=== PATIENT | female | born 1985 | race Hispanic/Latino ===

== ENCOUNTER 2018-10-17 23:19 | Emergency (ER) | payer BC | END 2018-10-18 01:15 | disposition home or self-care (01) | LOC: H.EROB2 23:19 | DX: O26.93 Pregnancy related conditions, unspecified, third trimester (principal); R10.2 Pelvic and perineal pain; Z3A.39 39 weeks gestation of pregnancy ==

== ENCOUNTER 2018-10-18 11:52 | Inpatient (IN) | payer BC, OTHER ==
--- NOTE | 2018-10-18 11:55 | OBHP ---
Datetime: 10/18/2018 00:05 IP Adm Impression: Term, intrauterine ; No Active Labor; Intact Membranes IP Admit Plan: Observation/Evaluation; Discharge home Admit Comment, IP Provider: 32 y/o , 38.2 weeks based on LMP with EDC of 10/29/18 presents to [facility] with uterine CTx. CTx staretd 9 am on 10/17/18 and progressively increased in severity. CTx are Q5-10 mins which are Q2-3 mins now. Endorses good FM. Denies VB, LOF. Denies any other urinary symptoms, f ever, chills, n/V. All system ROS negative except mentioned above. Care: Dr. Mady Cardoso, records reviewed. PMHx: Denies PSHx: Keloid removal Allergies: NKDA Meds: PNVs F/H: Mother: seizure disorder, Developmental anomaly GF: HTN, DM, COPD, MA Social Hx: Denies smoking, drugs , alcohol PE Gen: NAD Chest: RRR, S1S2 present Lungs: CTAB ABdomen: Gravid, Soft, NT Ext: No pedal edema SVE: Fingertip(Done byu Dr. Quan) A/P: 32 y/o , 38.2 weeks based on LMP with EDC of 10/29/18 presents to [facility] with uterine CTx. - Irregular Low amplitude CTx - EFM: Reactive as above - Cervix: Fingertip - US: Cephalic presentation - Dr. Cardoso called back and spoke with Marino VARGAS. Patient given option to receive IV pain medicati on and get rechecked in office or Discharge home with labor precautions and Follow up with Dr. Cardoso in office. Patient opted for going home and will follow up with Dr. Cardoso at 10:00am . - Labor precautions provided. Case discussed with Dr. Kadeem Cardoso OB Hospitalist note. Pt sen and examined with PGY1 ... Agree with PGY1 note MAHNDO Pelvic Type - PN: Adequate Extremities - PN: Normal Abdomen - PN: Normal Back - PN: Normal Breast - PN: Not Done Lungs - PN: Normal Heart - PN: Normal Thyroid - PN: Not Done Neurologic - PN: Not Done HEENT - PN: Normal General - PN: Normal Presentation-Admit: Vertex FHR - Baseline A Provider: 130 Membranes, Provider: Intact Pool Provider: Negative EGA AdmitDate IP: 38.3 Vital Signs Provider: Reviewed; Within Normal Limits IP Chief Complaint: Uterine contractions; Maternal discomfort NICHD Variability Prov Fetus A: Moderate 6-25bpm NICHD Accel Fetus A IP Provider: [id number] FHR Category Provider Fetus A: Category I NICHD Decel Fetus A IP Provider: None Dilatation, Provider: Fingertip Genitourinary Exam: Normal DTRs - PN: Not Done
--- NOTE | 2018-10-18 11:55 | OBDCSUM ---
Datetime: 10/18/2018 01:00 Discharged to, Provider: Home Follow up at, Provider: Dr. Cardoso Disch Instr Diet: Regular Discharge Diagnosis, Provider: Jesus Labor - Undelivered Discharge Time: 10/18/2018 01:00 Follow up in weeks, Provider: Tomorrow 10/18/2018 10:00 AM Disch Referrals: None
[2018-10-18] MEDS ORDERED: Oxytocin 30 UNIT in NS 500 ml 30 UNITS/500 ML BAG IV ONE ×3 (12:15→21:52)
[2018-10-18] MEDS: Lactated Ringer's 1,000 ML IV ONE ×2 (12:15→13:15)
[2018-10-18 12:19] VITALS: BMI 33.2
[2018-10-18 13:06] LABS: BASO % 0.2 % (0.0-2.0); HEMOGLOBIN 12.6 g/dL (12.0-16.0); LYMPH # 1.1 K/uL (1.0-4.3); LYMPH % 5.3 % (20.0-40.0); MEAN CELL VOLUME 77.8 fl (81.0-99.0); MEAN CORPUSCULAR HEMOGLOBIN 26.1 pg (27.0-31.0); MEAN CORPUSCULAR HGB CONC 33.5 g/dL (33.0-37.0); MEAN PLATELET VOLUME 9.1 fl (7.2-11.7); MONO # 0.6 K/uL (0.0-0.8); MONO % 2.7 % (0.0-10.0); NEUT # 18.8 K/uL (1.8-7.0); NEUT % 91.8 % (50.0-75.0); NRBC % 0.1 % (0.0-0.0); PLATELET COUNT 321 K/uL (130-400); RBC 4.84 Mil/uL (3.80-5.20); RED CELL DISTRIBUTION WIDTH 14.3 % (11.5-14.5); WHITE BLOOD COUNT 20.5 K/uL (4.8-10.8)
[2018-10-18] MEDS ORDERED: Bupivacaine HCl 0.5% PF (30 ml) Inj ONE ×2 (13:39→21:47)
[2018-10-18] MEDS ORDERED: Fentanyl/Bupivacaine HCl 250 ML EPI ONE (13:43)
[2018-10-18] MEDS: Lactated Ringer's 1,000 ML IV SCH ×3 (14:05→18:55)
[2018-10-18 14:48] LABS: ANISOCYTOSIS SLIGHT; LYMPHOCYTE 10 % (20-50); MICROCYTOSIS SLIGHT; MONOCYTE 4 % (0-10); NEUTROPHIL 86 % (42-75); OVALOCYTES SLIGHT; PLATELET ESTIMATE NORMAL (NORMAL); TOTAL CELLS COUNTED 100
[2018-10-18 14:49] LABS: LARGE PLATELETS PRESENT
[2018-10-18] MEDS ORDERED: Sodium Chloride 0.9% 10 ML IV ONE (15:26)
[2018-10-18] MEDS ORDERED: Sodium Chloride 0.9% 1,000 ML IV SCH (19:00)
[2018-10-18] MEDS ORDERED: ceFAZolin 1 GM in Sodium Chloride 0.9% 100 ML IVPB STA ×2 (21:39→21:40)
[2018-10-18] MEDS ORDERED: Azithromycin 500 MG in Sodium Chloride 0.9% 250 ML IVPB STA (21:45)
[2018-10-18] MEDS ORDERED: Phenylephrine 10 mg/ml Inj ONE (21:45)
[2018-10-18] MEDS ORDERED: ePHEDrine 50 mg/ml Inj ONE (21:46)
[2018-10-18] MEDS ORDERED: Morphine 5 mg/10 ml preservative-free Inj(Duramorph) ONE (21:47)
[2018-10-18] MEDS ORDERED: Morphine 1 mg/ml preservative-free Inj(Duramorph) ONE (22:27)
[2018-10-18] MEDS ORDERED: Triamcinolone Acetonide 40 mg/mL Inj IM ONE (22:36)
[2018-10-18] MEDS ORDERED: Oxycodone/Acetaminophen 5/325 mg Tab PO PRN ×2 (23:29)
[2018-10-19] MEDS ORDERED: Oxycodone/Acetaminophen 5/325 mg Tab PO PRN ×4 (01:29→03:01)
[2018-10-19] MEDS ORDERED: Sodium Chloride 0.9% 1,000 ML IV SCH (01:30)
[2018-10-19] MEDS ORDERED: Lactated Ringer's 1,000 ML IV SCH ×3 (02:01→03:01)
[2018-10-19] MEDS: Simethicone 80 mg Chewtab PO SCH ×4 (04:00→21:42)
[2018-10-19] MEDS ORDERED: Simethicone 80 mg Chewtab PO SCH ×2 (04:00)
[2018-10-19 06:50] LABS: HEMOGLOBIN 10.5 g/dL (12.0-16.0); MEAN CELL VOLUME 79.1 fl (81.0-99.0); MEAN CORPUSCULAR HEMOGLOBIN 25.9 pg (27.0-31.0); MEAN CORPUSCULAR HGB CONC 32.8 g/dL (33.0-37.0); RBC 4.06 Mil/uL (3.80-5.20); RED CELL DISTRIBUTION WIDTH 14.2 % (11.5-14.5); WHITE BLOOD COUNT 14.3 K/uL (4.8-10.8)
--- NOTE | 2018-10-19 08:16 | OP ---
PROCEDURE DATE: 10/18/18 PREOPERATIVE DIAGNOSES: Intrauterine at 38+ weeks, spontaneous rupture of membranes, nonreassuring heart rate category II tracing, remote from delivery. POSTOPERATIVE DIAGNOSES: Intrauterine at 38+ weeks, spontaneous rupture of membranes, nonreassuring heart rate category II tracing, remote from delivery. PROCEDURE PERFORMED: Primary low-flap transverse section by Pfannenstiel skin incision. SURGEON: Amilcar Patel MD DRY BOSS: Dr. Maryan Lynn. She was helpful in creating exposure, obtaining hemostasis, delivery of the and closure of the patient. The procedure would not have been possible without her assistance. ESTIMATED BLOOD LOSS: 800 mL. URINE OUTPUT: Approximately 150 mL of clear urine. The patient received 200 mL of D5 LR intraoperatively. OPERATIVE FINDINGS: Infant boy, vertex presentation, weighing 2230 g. Apgars 9 and 9. Normal uterus, tubes, and ovaries were identified. DESCRIPTION OF PROCEDURE: After informed consent was obtained, the patient was taken to the operating room. She was given spinal anesthesia. She was then prepped and draped in a normal sterile fashion with leftward tilt. A Pfannenstiel skin incision was then made with a scalpel and carried down to the underlying layer of fascia. The fascia was nicked in the midline. The fascial incision was then extended laterally with curved Lovett scissors. Superior aspect of the fascial incision was then grasped with Allison clamps, elevated up and the rectus muscles were dissected off using both sharp and blunt dissection. Attention was then turned to the inferior aspect of the fascial incision, which in a similar fashion was grasped with Allison clamps, elevated up and the rectus muscles were dissected off using both sharp and blunt dissection. The rectus muscles were then in the midline. The peritoneum was identified and entered sharply with Metzenbaum scissors. The peritoneal incision was then extended superiorly and inferiorly with good visualization of the bladder. A bladder blade was then adjusted and the vesicouterine peritoneum was identified and entered sharply with Metzenbaum scissors. The incision was then extended laterally. The bladder flap was created digitally. The bladder blade was then readjusted and a low transverse incision was made with a scalpel. The incision was then extended laterally. The infant's head was then delivered atraumatically. The nose and mouth were suctioned with DeLee suction trap. The cord was clamped and cut, and the infant was handed off to awaiting pediatricians. The placenta was then removed manually. The uterus was exteriorized and cleared of all clots and debris. The uterine incision was then repaired with 0 Vicryl in a running-locked fashion, the second layer of the same suture was used to obtain excellent hemostasis. The abdomen was then copiously irrigated. The irrigant was removed with the suction device. Hemostasis was noticed. The uterus was returned. The abdomen and the gutters were cleared of all clots and debris. The peritoneum was then closed with 2-0 Vicryl in a running fashion. The muscles were reapproximated with 0 Vicryl in an interrupted fashion. The fascia was closed with 0 Vicryl in a running fashion. The skin was closed with 3-0 on a Alexander needle. All sponge, lap, needle, and instrument counts were correct x2. The patient was taken to the recovery room in awake and stable condition. Amilcar Patel MD
[2018-10-19] MEDS: Multivitamin With Minerals Tab PO SCH (08:32)
[2018-10-19] MEDS ORDERED: Multivitamin With Minerals Tab PO SCH ×2 (09:00)
--- NOTE | 2018-10-19 09:08 | OBPPN ---
Datetime: 10/19/2018 09:07 PP Pain Prov: Within normal limits PP Nausea Prov: Denies PP Flatus Prov: Yes PP Breasts Prov: Normal PP Heart Prov: Normal PP Lungs Prov: Normal PP Abdomen/Uterus Prov: Normal PP Lochia Prov: Normal PP Vulva/Perineum Prov: Normal PP CVA Tenderness Prov: Normal PP Extremities Prov: Normal PP Impression Prov: Normal progression PP Plan Prov: Continue present management Vital Signs Provider PP: Reviewed
[2018-10-19] MEDS: Oxycodone/Acetaminophen 5/325 mg Tab PO PRN (21:40)
[2018-10-20] MEDS: Simethicone 80 mg Chewtab PO SCH ×4 (04:30→21:54)
[2018-10-20] MEDS: Multivitamin With Minerals Tab PO SCH (09:00)
[2018-10-20] MEDS: Oxycodone/Acetaminophen 5/325 mg Tab PO PRN (20:13)
--- NOTE | 2018-10-20 20:16 | OBPPN ---
Datetime: 10/20/2018 20:14 PP Pain Prov: Within normal limits PP Nausea Prov: Denies PP Flatus Prov: Yes PP BM Prov: Yes PP Breasts Prov: Normal PP Heart Prov: Normal PP Lungs Prov: Normal PP Abdomen/Uterus Prov: Normal PP Lochia Prov: Normal PP Vulva/Perineum Prov: Normal PP CVA Tenderness Prov: Normal PP Extremities Prov: Normal PP C/S Incision Prov: Normal PP Progress Prov: Normal PP Impression Prov: Normal progression PP Plan Prov: Continue present management PP Progress Note Prov: pt seen and examien carolyn pjorts pain over incicsion site somethwat contolled with medcaion. pt is ambaitnb, passign flatus, urinating. pt is breast feeding. denies any fever, ch ills, nasue, voiting cp, sob, dizyznees, lightheadd, VSS PE see above IINCIO C/D/I healing well no uteirne tendnere moderatel lohcai, non foul smelling a/p s/p PLTCS POD #2 doing well pain managment regular diet antics dxc in am rto 1 week precaiotn given Vital Signs Provider PP: Reviewed; Within Normal Limits
[2018-10-21] MEDS: Simethicone 80 mg Chewtab PO SCH ×2 (04:36→09:24)
[2018-10-21] MEDS: Multivitamin With Minerals Tab PO SCH (08:45)
[2018-10-21] MEDS: Oxycodone/Acetaminophen 5/325 mg Tab PO PRN (08:45)
--- NOTE | 2018-10-21 13:09 | OBDCSUM ---
Datetime: 10/21/2018 12:57 Discharged to, Provider: Home Follow up at, Provider: DR Cardoso Disch Instr Activity: May Shower Disch Instr Diet: Regular Discharge Instructions, Provider: Routine instructions given Discharge Diagnosis, Provider: Term Delivered Discharge Time: 10/21/2018 14:00 Follow up in weeks, Provider: 1 week Disch Activity Restrictions: No sexual activity; Nothing in vagina - [place], tampons, douche
--- NOTE | 2018-10-21 13:09 | OBPPN ---
Datetime: 10/21/2018 13:06 PP Pain Prov: Within normal limits PP Nausea Prov: Denies PP Flatus Prov: Yes PP BM Prov: Yes PP Abdomen/Uterus Prov: Normal PP Lochia Prov: Normal PP Extremities Prov: Normal PP C/S Incision Prov: Normal PP Progress Prov: Normal PP Comments Phys Exam Prov: Incision w/ streri strips PP Impression Prov: Normal progression PP Plan Prov: Discharge PP Progress Note Prov: POD 3 s/p primary cesaren section, doing well, breast and bottle feeding Rx's motrin and percocet given to pt Discharge home today Vital Signs Provider PP: Reviewed
[2018-10-21 20:18] VITALS: BP 120/79; PULSE 103; RESP 18; TEMP 98; O2SAT 97
== END 2018-10-21 14:00 | disposition home or self-care (01) | DRG 788 ==
LOC: H.EROB2 11:52 → H.L&D 12:15 → H.OB/GYN 10-19 01:45
PROVIDERS: ADMIT Obstetrics & Gynecology; ATTEND Obstetrics & Gynecology
PROC: 10D00Z1 Extraction of Products of Conception, Low, Open Approach (ICD-10-PCS; principal; 2018-10-18)
PROC: 4A1HXCZ Monitoring of Products of Conception, Cardiac Rate, External Approach (ICD-10-PCS; 2018-10-18)
DX: O76 Abnormality in fetal heart rate and rhythm complicating labor and delivery (principal); Z37.0 Single live birth; Z3A.38 38 weeks gestation of pregnancy